=== PATIENT | male | born 2005 | race Caucasian/White ===

== ENCOUNTER 2024-07-20 19:02 | Emergency (ER) | payer OTHER ==
[2024-07-20 19:14] VITALS: BP 139/96
[2024-07-20] MEDS ORDERED: Ketorolac 30 MG/ML VIAL IV ONE (19:30)
[2024-07-20] MEDS ORDERED: Acetaminophen 500 MG TAB PO ONE (19:30)
[2024-07-20 20:07] LABS: BASO # 0.01 K/mm3 (0.02-0.10); EOS # 0.01 K/mm3 (0.04-0.40); EOS % 0.1 % (0.0-4.0); HEMATOCRIT 45.7 % (36.0-47.0); HEMOGLOBIN 16.7 g/dL (12.5-16.1); LYMPH# 0.61 K/mm3 (1.50-4.00); MEAN CELL VOLUME 88 fl (78-95); MEAN CORPUSCULAR HEMOGLOBIN 32 pg (26-32); MEAN CORPUSCULAR HGB CONC 37 g/dL (33-37); MEAN PLATELET VOLUME 9.2 fl (7.4-10.4); MONO # 0.93 K/mm3 (0.20-0.80); PLATELET COUNT 248 K/mm3 (130-400); RED BLOOD COUNT 5.21 M/mm3 (4.20-5.60); RED CELL DISTRIBUTION WIDTH 11.3 % (11.5-14.5); WHITE BLOOD COUNT 14.8 K/mm3 (4.8-10.8)
[2024-07-20 20:14] LABS: ALBUMIN 5.1 g/dL (3.5-5.0)
[2024-07-20 20:17] LABS: TOTAL PROTEIN 7.5 g/dL (6.4-8.3)
[2024-07-20 20:19] LABS: TOTAL BILIRUBIN 1.3 mg/dL (0.2-1.2)
[2024-07-20] MEDS ORDERED: LORazepam 2 MG/ML VIAL IV ONE (20:30)
== END 2024-07-20 22:46 | disposition home or self-care (01) ==
LOC: ED 19:02
PROVIDERS: Physician Assistant
DX: J06.9 Acute upper respiratory infection, unspecified (principal)
CPT/HCPCS: J1885; J2060